=== PATIENT | male | born 1950 | race American Indian/Alaskan Native ===

== ENCOUNTER 2021-03-05 17:47 | Emergency (ER) | payer MEDICARE, OTHER ==
[2021-03-05 17:52] VITALS: BP 160/80
[2021-03-05] MEDS ORDERED: IBUPROFEN 600 MG TAB PO ONE (21:31)
[2021-03-05] MEDS ORDERED: ACETAMINOPHEN 500 MG TAB PO ONE (21:32)
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
== END 2021-03-06 00:05 | disposition home or self-care (01) ==
LOC: ED 17:47
DX: M62.838 Other muscle spasm (principal); M62.830 Muscle spasm of back; G44.319 Acute post-traumatic headache, not intractable; V89.2XXA Person injured in unspecified motor-vehicle accident, traffic, initial encounter; J32.4 Chronic pansinusitis; Y93.89 Activity, other specified; Y92.89 Other specified places as the place of occurrence of the external cause; Y99.8 Other external cause status
CPT/HCPCS: 70450; 72100; 72125; 99284